=== PATIENT | male | born 1990 | race Caucasian/White ===

== ENCOUNTER 2018-05-18 13:00 | Emergency (ER) | payer BC ==
--- NOTE | 2018-05-18 13:10 | EDM.PDOC ---
ED HPI GENERAL MEDICAL PROBLEM - General Chief Complaint: ENT Problem Stated Complaint: RIGHT EYE PAIN Time Seen by Provider: 05/18/18 13:10 Source of Information: Reports: Patient History Limitations: Reports: No Limitations - History of Present Illness INITIAL COMMENTS - FREE TEXT/NARRATIVE: HISTORY AND PHYSICAL: History of present illness: Patient is a 28-year-old male who presents to the emergency room with complaints of foreign body of the right eye. He states he thought he had a piece of dirt that was stuck in the eye and he was unable to wipe it away. He denies any visual changes, headache, trauma or injury. 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 Unsure of his last tetanus update. Review of systems: As per history of present illness and below otherwise all systems reviewed and negative. Past medical history: As per history of present illness and as reviewed below otherwise noncontributory. Surgical history: As per history of present illness and as reviewed below otherwise noncontributory. Social history: See social history for further information Family history: As per history of present illness and as reviewed below otherwise noncontributory. Physical exam: General: Well developed and well-nourished 28-year-old male. Alert and oriented. Nontoxic appearing and in no acute distress. HEENT: Atraumatic, normocephalic, pupils equal and reactive bilaterally, negative for conjunctival pallor or scleral icterus, patient does have a pinpoint foreign body noted at the 8 o'clock position in the iris of right eye with mild scleral injection. His oral mucous membranes are moist, TMs normal bilaterally, throat clear, neck supple, nontender, trachea midline. No drooling or trismus noted. No meningeal signs. No hot potato voice noted. Lungs: Clear to auscultation, breath sounds equal bilaterally, chest nontender. Heart: S1S2, regular rate and rhythm without overt murmur Abdomen: Soft, nondistended, nontender. Pelvis: Stable nontender. Genitourinary: Deferred. Rectal: Deferred. Skin: Intact, warm, dry. No lesions or rashes noted. Extremities: Atraumatic, negative for cords or calf pain. Neurovascular unremarkable. Neuro: Awake, alert, oriented. Cranial nerves II through XII unremarkable. Cerebellum unremarkable. Motor and sensory unremarkable throughout. Exam nonfocal. Notes: Unable to removed the foreign object during my visual exam. Used a wet q-tip to gently remove; unsuccessful. No abrasions noted with the fluorescein exam. Tetanus was updated. Dr. Lopez was consult did on this case. He states that he' ll see this patient in his office immediately from discharge from the emergency room. This information was shared with the patient. He denies any further questions or concerns at this time. Diagnostics: None Therapeutics: Tdap, tetracaine gtts, fluorescein, Prescription: None Impression: Foreign body of the right eye Plan: 1. Please go across the bypass directed to [facility], Dr Lopez, the opthomologist is expecting you now. He will further evaluate you. 2. Return to the ED as needed and as discussed. Definitive disposition and diagnosis as appropriate pending reevaluation and review of above. Right Eye Pain Score (Numeric/FACES): 5 - Related Data Allergies Allergy/AdvReac Type Severity Reaction Status Date / Time No Known Allergies Allergy Verified 05/18/18 13:10 Home Meds: Home Meds . [No Known Home Meds] 05/18/18 [History] ED ROS ENT - Review of Systems Review Of Systems: ROS reveals no pertinent complaints other than HPI. ED EXAM, ENT - Physical Exam Exam: See Below (See dictation) Course - Vital Signs Last Recorded V/S: Last Vital Signs Temp 97.1 F 05/18/18 13:09 Pulse 92 05/18/18 13:09 Resp 18 05/18/18 13:09 BP 134/84 05/18/18 13:09 Pulse Ox 97 05/18/18 13:09 - Orders/Labs/Meds Orders: Active Orders 24 hr Category Date Time Status Communication Order [RC] STAT Care 05/18/18 13:34 Active Vaccines to be Administered [RC] PER UNIT ROUTINE Care 05/18/18 13:14 Active Meds: Medications Discontinued Medications Generic Name Dose Route Start Last Admin Trade Name Freq PRN Reason Stop Dose Admin Diphtheria/Tetanus/Acell Pertussis 0.5 ml 05/18/18 13:14 05/18/18 13:25 Adacel IM 05/18/18 13:15 0.5 ml .ONCE ONE Administration Tetracaine HCl 2 ml 05/18/18 13:14 05/18/18 13:33 Tetracaine 0.5% Steri-Unit Eunice EYERT 05/18/18 13:15 1 ml ASDIRECTED ONE Administration Departure - Departure Time of Disposition: 13:43 Disposition: Home, Self-Care 01 Clinical Impression: Eye foreign body Qualifiers: Encounter type: initial encounter Laterality: right Qualified Code(s): T15.91XA - Foreign body on external eye, part unspecified, right eye, initial encounter - Discharge Information Instructions: Eye Foreign Body, [id number] Referrals: Grabiel Ball MD [Primary Care Provider] - Forms: ED Department Discharge Additional Instructions: The following information is given to patients seen in the emergency department who are being discharged to home. This information is to outline your options for follow-up care. We provide all patients seen in our emergency department with a follow-up referral. The need for follow-up, as well as the timing and circumstances, are variable depending upon the specifics of your emergency department visit. If you don't have a primary care physician on staff, we will provide you with a referral. We always advise you to contact your personal physician following an emergency department visit to inform them of the circumstance of the visit and for follow-up with them and/or the need for any referrals to a consulting specialist. The emergency department will also refer you to a specialist when appropriate. This referral assures that you have the opportunity for follow-up care with a specialist. All of these measure are taken in an effort to provide you with optimal care, which includes your follow-up. Under all circumstances we always encourage you to contact your private physician who remains a resource for coordinating your care. When calling for follow-up care, please make the office aware that this follow-up is from your recent emergency room visit. If for any reason you are refused follow-up, please contact the [facility] Emergency Department at and asked to speak to the emergency department charge nurse. [address] [id number] 1. Please go across the bypass directed to [facility], Dr Lopez, the opthomologist is expecting you now. He will further evaluate you. 2. Return to the ED as needed and as discussed. - My Orders Last 24 Hours: My Active Orders 05/18/18 13:14 Vaccines to be Administered [RC] PER UNIT ROUTINE 05/18/18 13:34 Communication Order [RC] STAT - Assessment/Plan Last 24 Hours: My Active Orders 05/18/18 13:14 Vaccines to be Administered [RC] PER UNIT ROUTINE 05/18/18 13:34 Communication Order [RC] STAT
[2018-05-18] MEDS ORDERED: Tetracaine HCl/PF 0.5% 4 ML Bottle EYERT ONE (13:14)
[2018-05-18] MEDS ORDERED: Diphtheria,Pertussis(Acell),Tetanus Vaccine 0.5 ML Syringe IM ONE (13:14)
== END 2018-05-18 13:56 | disposition home or self-care (01) ==
LOC: MW.ED 13:00
DX: T15.81XA Foreign body in other and multiple parts of external eye, right eye, initial encounter (principal); Z23 Encounter for immunization; X58.XXXA Exposure to other specified factors, initial encounter; Y99.0 Civilian activity done for income or pay
CPT/HCPCS: 90471; 90715; 99282-25; 99283

== ENCOUNTER 2019-03-28 18:11 | Emergency (ER) | payer BC ==
[2019-03-28] MEDS ORDERED: Alum Hydrox/Mag Hydrox/Simeth 15 ML, Metoclopramide 5 MG, Lidocaine 2% 5 ML PO ONE ×3 (18:40)
--- NOTE | 2019-03-28 18:47 | EDM.PDOC ---
ED HPI GENERAL MEDICAL PROBLEM - General Chief Complaint: Gastrointestinal Problem Stated Complaint: HEART BURN Time Seen by Provider: 03/28/19 18:30 - History of Present Illness INITIAL COMMENTS - FREE TEXT/NARRATIVE: HISTORY AND PHYSICAL: History of present illness: the patient is a 29-year-old male with no GI history or abdominal surgical historywho states that he has hyear history of heartburn premature every day which usually goes away with Rolaids or Tums and who presents with a more acute episode that started last evening and has improved by 10 AM today. The patient says that particular foods trigger the heartburn but he has a pretty much every day and [id number] Rolaids or Tums alleviates the discomfort last evening had a bad episode of it which he describes as epigastric and lower chest burning and he did not have any Rolaids or Tums and did not take any medications for it. He did not drink alcohol last evening but he did eatmburger and other rich foods.he says the pain does not localize right or left and there is no lower abdominal tenderness and no chest pain or shortness of breath. He says that the pain persisted throughout the evening and he had restless sleep and by 10:00 this morning the discomfort was gone but he did have some nausea and one small episode of vomiting as evening which prompted him to come in. He says that he threw up some food and it was not black or bloody and there was no bile. He says he had a normal bowel movement over the last couple of days and it is also not black or bloody or diarrhea. Patient has nev been evaluated for these symptoms and is currently not symptomatic Review of systems: As per history of present illness and below otherwise all systems reviewed and negative. Past medical history: As per history of present illness and as reviewed below otherwise noncontributory. Surgical history: As per history of present illness and as reviewed below otherwise noncontributory. Social history: No reported history of drug or alcohol abuse. Family history: As per history of present illness and as reviewed below otherwise noncontributory. Physical exam: general: Well-developed well-nourished man who is nontoxic and vital signs are noted by me. HEENT: Atraumatic, normocephalic, pupils reactive, negative for conjunctival pallor or scleral icterus, mucous membranes moist, throat clear, neck supple, nontender, trachea midline. Lungs: Clear to auscultation, breath sounds equal bilaterally, chest nontender. Heart: S1S2, regular rate and rhythm no overtmurmurs Abdomen: Soft, nondistended, no upper abdominal tenderness in the epigastrium or the upper quadrants and no rebound or Negative for masses or hepatosplenomegaly. Negative for costovertebral tenderness. Pelvis:deferred Genitourinary: Deferred. Rectal: Deferred. Extremities: Atraumatic, negative for cords or calf pain. Neurovascular unremarkable. Neuro: Awake, alert, oriented. Cranial nerves II through XII unremarkable. Cerebellum unremarkable. Motor and sensory unremarkable throughout. Exam nonfocal. Diagnostics: EKG The patient was offered lab evaluation and imaging and declines that at this time Therapeutics: GI cocktail Discussed with the patient that he does need follow-up in the clinic for probable endoscopy and further testing and evaluation of these chronic symptoms. I did offer him a lab evaluation and imaging here which he declines and says that he would just like to try other medications such as antacids until he can follow-up in the clinic. Impression: upper abdominal pain/epigastric pain and dyspepsia, acute on chronic Definitive disposition and diagnosis as appropriate pending reevaluation and review of above. no pain Pain Score (Numeric/FACES): 0 - Related Data Allergies Allergy/AdvReac Type Severity Reaction Status Date / Time No Known Allergies Allergy Verified 03/28/19 18:33 Home Meds: Home Meds . [No Known Home Meds] 05/18/18 [History] Past Medical History - Past Health History Medical/Surgical History: Denies Medical/Surgical History Cardiovascular History: Reports: None Respiratory History: Reports: None Gastrointestinal History: Reports: None Genitourinary History: Reports: None Musculoskeletal History: Reports: None Neurological History: Reports: None Psychiatric History: Reports: None Endocrine/Metabolic History: Reports: None Hematologic History: Reports: None Immunologic History: Reports: None Oncologic (Cancer) History: Reports: None Dermatologic History: Reports: None - Infectious Disease History Infectious Disease History: Reports: Chicken Pox - Past Surgical History Head Surgeries/Procedures: Reports: None Social & Family History - Family History Family Medical History: Noncontributory - Tobacco Use Smoking Status *Q: Current Every Day Smoker Years of Tobacco use: 15 Packs/Tins Daily: 1 - Recreational Drug Use Recreational Drug Use: No ED ROS GENERAL - Review of Systems Review Of Systems: Comprehensive ROS is negative, except as noted in HPI. ED EXAM, GENERAL - Physical Exam Exam: See Below (see dictation) Course - Vital Signs Last Recorded V/S: Last Vital Signs Temp 36.6 C 03/28/19 18:34 Pulse 84 03/28/19 18:34 Resp 16 03/28/19 18:34 BP 131/90 03/28/19 18:34 Pulse Ox 97 03/28/19 18:34 - Orders/Labs/Meds Orders: Active Orders 24 hr Category Date Time Status EKG Documentation Completion [RC] STAT Care 03/28/19 18:35 Active Meds: Medications Discontinued Medications Generic Name Dose Route Start Last Admin Trade Name Freq PRN Reason Stop Dose Admin Al Hydroxide/Mg Hydroxide 15 0 ml 03/28/19 18:40 03/28/19 18:51 ml/ Metoclopramide HCl 5 mg/ PO 03/28/19 18:41 1 each Lidocaine HCl 5 ml ONETIME ONE Administration Departure - Departure Time of Disposition: 18:55 Disposition: Home, Self-Care 01 Condition: Good Clinical Impression: Epigastric pain, Dyspepsia - Discharge Information Referrals: PCP,None [Primary Care Provider] - Forms: ED Department Discharge Additional Instructions: The following information is given to patients seen in the emergency department who are being discharged to home. This information is to outline your options for follow-up care. We provide all patients seen in our emergency department with a follow-up referral. The need for follow-up, as well as the timing and circumstances, are variable depending upon the specifics of your emergency department visit. If you don't have a primary care physician on staff, we will provide you with a referral. We always advise you to contact your personal physician following an emergency department visit to inform them of the circumstance of the visit and for follow-up with them and/or the need for any referrals to a consulting specialist. The emergency department will also refer you to a specialist when appropriate. This referral assures that you have the opportunity for followup care with a specialist. All of these measure are taken in an effort to provide you with optimal care, which includes your followup. Under all circumstances we always encourage you to contact your private physician who remains a resource for coordinating your care. When calling for followup care, please make the office aware that this follow-up is from your recent emergency room visit. If for any reason you are refused follow-up, please contact the [facility] emergency department at and ask to speak to the emergency department charge nurse. [facility] Specialty Care-General Surgery Professional Building [address] [place] [phone] Please connect with one of our clinic providers for further care of these symptoms as you may need endoscopy or other imaging to further evaluate these symptoms if they persist. His medications as prescribed and try to watch her diet avoiding caffeinated products alcohol fatty foods and spicy foods. Return here as needed as discussed - My Orders Last 24 Hours: My Active Orders 03/28/19 18:35 EKG Documentation Completion [RC] STAT - Assessment/Plan Last 24 Hours: My Active Orders 03/28/19 18:35 EKG Documentation Completion [RC] STAT
== END 2019-03-28 19:05 | disposition home or self-care (01) ==
LOC: MW.ED 18:11
DX: R10.13 Epigastric pain (principal); G89.29 Other chronic pain; F17.210 Nicotine dependence, cigarettes, uncomplicated
CPT/HCPCS: 93005; 99283; A9270